=== PATIENT | male | born 1960 ===

== ENCOUNTER 2022-09-30 05:20 | Day surgery (SDC) | payer OTHER ==
[2022-09-26 09:10] VITALS: BMI 44.6
[2022-09-30] MEDS ORDERED: MIDAZOLAM HCL 2 MG/2 ML SINGLE DOSE VIAL ONE (07:16)
[2022-09-30] MEDS ORDERED: KETAMINE HCL 500 MG/10 ML VIAL ONE (07:16)
[2022-09-30] MEDS ORDERED: PROPOFOL 20 ML ONE (07:17)
[2022-09-30] MEDS ORDERED: ACETAMINOPHEN INJECTION 100 ML IVPB ONE (07:56)
[2022-09-30] MEDS ORDERED: ELECTROLYTE-148 SOLN 1,000 ML IV SCH (09:00)
[2022-09-30 12:02] VITALS: RESP 20; TEMP 97.5
[2022-09-30 12:23] VITALS: BP 143/78; PULSE 60
[2022-09-30] MEDS ORDERED: PHENAZOPYRIDINE HCL 100 MG TABLET (FP) PO SCH (13:00)
== END 2022-09-30 11:31 | disposition home or self-care (01) ==
LOC: JASU-SURG 05:20
PROVIDERS: ATTEND Urology
PROC: 0T7D8DZ Dilation of Urethra with Intraluminal Device, Via Natural or Artificial Opening Endoscopic (ICD-10-PCS; principal; 2022-09-30 08:00)
DX: N40.0 Benign prostatic hyperplasia without lower urinary tract symptoms (principal)
CPT/HCPCS: C9740; L8699; 94760